=== PATIENT | female | born 1940 | race Caucasian/White ===

== ENCOUNTER 2023-02-08 08:45 | Inpatient (IN) | payer OTHER ==
[~2023-02-08] VITALS: Ht 144.8 cm; Wt 102.5 kg
[2023-02-08 09:03] LABS: Basophils # (auto) 0 10 ^3/uL (0-0.2); Basophils % (auto) 0.4 % (0.0-2.0); Eosinophils # (auto) 0.6 10 ^3/uL (0-0.8); Eosinophils % (auto) 6.6 % (0.0-7.0); Hematocrit 41.8 % (36.0-46.0); Hemoglobin 14.3 g/dL (12.2-16.2); Lymphocytes # (auto) 1.4 10 ^3/uL (0.4-5.4); Lymphocytes % (auto) 15.2 % (10.0-50.0); Mean Corpuscular Hemoglobin 31.4 pg (28.0-32.0); Mean Corpuscular Hgb Conc. 34.1 g/dL (32.0-36.0); Mean Corpuscular Volume 92.2 fL (80.0-100.0); Monocytes # (auto) 0.4 10 ^3/uL (0-1.3); Monocytes % (auto) 3.9 % (0.0-12.0); Neutrophils # (auto) 6.6 10 ^3/uL (1.6-8.6); Neutrophils % (auto) 73.9 % (37.0-80.0); Red Blood Cells 4.53 10^6/uL (4.0-5.20); Red Cell Distribution Width 13.3 % (11.8-14.3); White Blood Cell 8.9 10^3/uL (4.4-10.8)
[2023-02-08 09:20] LABS: Albumin 3.8 g/dL (3.4-5.0); Calcium 9.2 mg/dL (8.5-10.1); Potassium 4.3 mmol/L (3.5-5.1)
[2023-02-08 09:23] LABS: BUN/Creatinine Ratio 27.9 (10.0-20.0); Bilirubin, Total 0.7 mg/dL (0.2-1.0); Total Protein 7.2 g/dL (6.4-8.2)
[2023-02-08] MEDS ORDERED: SODIUM CHLORIDE 0.9% 1,000 ML IV ONE (11:00)
[2023-02-08] MEDS ORDERED: MORPHINE SULFATE INJ 2 MG/ml SYRG IV PRN (11:00)
[2023-02-08] MEDS ORDERED: NITROGLYCERIN 2% OINT 1GM PKG TD ONE (11:00)
[2023-02-08] MEDS ORDERED: NITROGLYCERIN 0.4 MG SL TAB SL PRN (11:00)
[2023-02-08] MEDS ORDERED: ASPirin-EC 325mg tab PO ONE (11:00)
[2023-02-08] MEDS ORDERED: ENOXAPARIN SOD 40 MG/0.4 ML SYRINGE SC ONE (11:00)
[2023-02-08] MEDS ORDERED: ALBUTEROL SULF 2.5 MG/0.5ML(0.5%) NEB SOLN NEB PRN (11:30)
[2023-02-08] MEDS ORDERED: FUROSEMIDE 20 MG/2 ML VIAL IV ONE (11:30)
[2023-02-08] MEDS ORDERED: IPRATROPIUM BROM 0.5 MG/2.5ML INH SOL NEB PRN (11:30)
[2023-02-08] MEDS ORDERED: IOHEXOL 300 MG/ML 100ML BOTTLE IJ ONE ×2 (11:55→16:51)
[2023-02-08 12:06] LABS: INR 1.05 (0.9-1.15); Partial Thromboplastin Time 26.1 sec (24.6-33.4)
[2023-02-08 13:08] VITALS: BP 156/60
[2023-02-08] MEDS ORDERED: hydrALAZINE HCL 20 MG/ML VL IV PRN (15:00)
[2023-02-08 16:41] LABS: Cholesterol 120 mg/dL (< 200); HDL Cholesterol 56 mg/dL (40-59); LDL Cholesterol 62 mg/dL (< 100); Triglycerides 67 mg/dL (< 150)
[2023-02-08 22:00] VITALS: BP_SYST 102; BP_SYST 105; BP_SYST 81; BP_DIAS 53; BP_DIAS 55; BP_DIAS 68
[2023-02-08 22:24] VITALS: BP 102/53
[2023-02-08] MEDS: ATORVASTATIN 20 MG TAB PO SCH (22:25)
[2023-02-08] MEDS: MONTELUKAST SODIUM 10 MG TAB PO SCH (22:25)
[2023-02-08] MEDS: CARVEDILOL 3.125 MG TAB PO SCH (22:26)
[2023-02-08] MEDS ORDERED: LOSA100T58 PO (23:36)
[2023-02-08] MEDS ORDERED: UMEC1AER IN (23:36)
[2023-02-08] MEDS ORDERED: CAR3125T PO (23:36)
[2023-02-08] MEDS ORDERED: MONT-8 PO (23:36)
[2023-02-08] MEDS ORDERED: ATOR20TA PO (23:36)
[2023-02-08] MEDS ORDERED: SPIR25TA8 PO (23:36)
[2023-02-08] MEDS ORDERED: FURO1TAB33 PO (23:36)
[2023-02-09] VITALS (7 sets, daily range): BP systolic 94–140; BP diastolic 32–81
[2023-02-09 05:59] LABS: Basophils # (auto) 0 10 ^3/uL (0-0.2); Basophils % (auto) 0.5 % (0.0-2.0); Eosinophils # (auto) 0.8 10 ^3/uL (0-0.8); Eosinophils % (auto) 9.7 % (0.0-7.0); Hematocrit 40.5 % (36.0-46.0); Lymphocytes # (auto) 2.2 10 ^3/uL (0.4-5.4); Lymphocytes % (auto) 25.3 % (10.0-50.0); Mean Corpuscular Hemoglobin 31.6 pg (28.0-32.0); Mean Corpuscular Hgb Conc. 34.4 g/dL (32.0-36.0); Mean Corpuscular Volume 91.6 fL (80.0-100.0); Monocytes # (auto) 0.8 10 ^3/uL (0-1.3); Monocytes % (auto) 9.5 % (0.0-12.0); Neutrophils # (auto) 4.7 10 ^3/uL (1.6-8.6); Nucleated Red Blood Cells % 0.1 %; Red Blood Cells 4.42 10^6/uL (4.0-5.20); Red Cell Distribution Width 13.4 % (11.8-14.3); White Blood Cell 8.6 10^3/uL (4.4-10.8)
[2023-02-09 06:15] LABS: Albumin 3.5 g/dL (3.4-5.0); Calcium 9.1 mg/dL (8.5-10.1); Potassium 3.8 mmol/L (3.5-5.1)
[2023-02-09 06:21] LABS: BUN/Creatinine Ratio 25.7 (10.0-20.0); Bilirubin, Total 0.6 mg/dL (0.2-1.0); Total Protein 6.9 g/dL (6.4-8.2)
[2023-02-09] MEDS: PANTOPRAZOLE 40 MG/10 ML VIAL INJ IV SCH (09:45)
[2023-02-09] MEDS: ASPirin 81 mg TAB PO SCH (09:46)
[2023-02-09] MEDS: ENOXAPARIN SOD 40 MG/0.4 ML SYRINGE SC SCH (09:46)
[2023-02-09] MEDS: FUROSEMIDE 20 MG/2 ML VIAL IV SCH (09:47)
[2023-02-09] MEDS: CARVEDILOL 3.125 MG TAB PO SCH ×2 (09:47→21:30)
[2023-02-09] MEDS ORDERED: LOSARTAN POTASSIUM 50 MG TAB PO SCH (10:00)
[2023-02-09] MEDS ORDERED: SPIRONOLACTONE 25 MG TAB PO SCH (10:00)
[2023-02-09] MEDS ORDERED: ASPirin-EC 81 mg tab PO SCH (10:00)
[2023-02-09] MEDS: MONTELUKAST SODIUM 10 MG TAB PO SCH (21:29)
[2023-02-09] MEDS: ATORVASTATIN 20 MG TAB PO SCH (21:29)
[2023-02-10 05:00] VITALS: BP_SYST 130; BP_SYST 134; BP_SYST 138; BP_DIAS 62; BP_DIAS 70; BP_DIAS 95
[2023-02-10 09:00] VITALS: BP 126/50
[2023-02-10] MEDS: PANTOPRAZOLE 40 MG/10 ML VIAL INJ IV SCH (11:49)
[2023-02-10] MEDS: ENOXAPARIN SOD 40 MG/0.4 ML SYRINGE SC SCH (11:49)
[2023-02-10] MEDS: CARVEDILOL 3.125 MG TAB PO SCH ×2 (11:50→22:07)
[2023-02-10] MEDS: ASPirin 81 mg TAB PO SCH (11:50)
[2023-02-10] MEDS: FUROSEMIDE 20 MG/2 ML VIAL IV SCH (11:50)
[2023-02-10 13:00] VITALS: BP 98/51
[2023-02-10] MEDS: POTASSIUM CHL 20 Meq TABLET PO SCH (16:26)
[2023-02-10 16:40] VITALS: BP 90/46
[2023-02-10 22:00] VITALS: BP 108/70
[2023-02-10] MEDS: SUCRALFATE 1 GM/10 ML ORAL SUSP PO SCH (22:06)
[2023-02-10] MEDS: MONTELUKAST SODIUM 10 MG TAB PO SCH (22:07)
[2023-02-10] MEDS: ATORVASTATIN 20 MG TAB PO SCH (22:07)
[2023-02-11 02:46] LABS: Urine Bacteria FEW /hpf (None Seen); Urine Blood Negative /uL (Negative); Urine Hyaline Cast FEW /lpf (0 - 2); Urine Specific Gravity 1.014 (1.001-1.035); Urine WBC 9 /hpf (0 - 5)
[2023-02-11 05:00] VITALS: BP_SYST 101; BP_SYST 103; BP_DIAS 54; BP_DIAS 64
[2023-02-11 05:31] LABS: Hematocrit 38.9 % (36.0-46.0); Hemoglobin 13.3 g/dL (12.2-16.2); Mean Corpuscular Hemoglobin 31.6 pg (28.0-32.0); Mean Corpuscular Hgb Conc. 34.3 g/dL (32.0-36.0); Mean Corpuscular Volume 91.9 fL (80.0-100.0); Red Blood Cells 4.23 10^6/uL (4.0-5.20); Red Cell Distribution Width 13.4 % (11.8-14.3); White Blood Cell 7.9 10^3/uL (4.4-10.8)
[2023-02-11 05:40] LABS: Band Neutrophils % (manual) 0; Basophils % (manual) 0 (0.0-2.0); Blast Cells 0; Metamyelocytes % 0; Myelocytes % 0; Promyelocytes % 0
[2023-02-11 05:52] LABS: Albumin 3.3 g/dL (3.4-5.0); Calcium 9.1 mg/dL (8.5-10.1); Potassium 4.2 mmol/L (3.5-5.1)
[2023-02-11 05:55] LABS: BUN/Creatinine Ratio 25.5 (10.0-20.0); Bilirubin, Total 0.6 mg/dL (0.2-1.0)
[2023-02-11] MEDS: SUCRALFATE 1 GM/10 ML ORAL SUSP PO SCH ×4 (06:02→20:58)
[2023-02-11] MEDS ORDERED: IOHEXOL 350 MG/ML 100ML IJ ONE ×2 (07:19→14:37)
[2023-02-11 08:20] VITALS: BP 135/58
[2023-02-11 08:57] VITALS: BP 135/58
[2023-02-11 11:12] LABS: Eosinophils % (manual) 25 (0-7); Lymphocytes % (manual) 28 (10.0-50.0); Monocytes % (manual) 7 (0-12); Reactive Lymphocytes 1
[2023-02-11 13:00] VITALS: BP 111/77
[2023-02-11 14:34] VITALS: BP 133/59
[2023-02-11] MEDS: CARVEDILOL 3.125 MG TAB PO SCH (15:07)
[2023-02-11] MEDS ORDERED: levoFLOXacin 500MG 100 ML IV ONE (15:15)
[2023-02-11] MEDS: PANTOPRAZOLE 40 MG/10 ML VIAL INJ IV SCH (16:06)
[2023-02-11] MEDS: POTASSIUM CHL 20 Meq TABLET PO SCH (16:06)
[2023-02-11] MEDS: CHOLECALCIFEROL (VITD3) 2,000 UNIT CAP/TAB PO SCH (16:06)
[2023-02-11] MEDS: FUROSEMIDE 20 MG/2 ML VIAL IV SCH (16:06)
[2023-02-11] MEDS: ENOXAPARIN SOD 40 MG/0.4 ML SYRINGE SC SCH (16:07)
[2023-02-11 17:00] VITALS: BP_SYST 120; BP_SYST 128; BP_SYST 136; BP_DIAS 62; BP_DIAS 82
[2023-02-11] MEDS ORDERED: LORazepam 2MG/ML-1ML VIAL IV PRN (20:45)
[2023-02-11] MEDS: ATORVASTATIN 20 MG TAB PO SCH (20:58)
[2023-02-11] MEDS: MONTELUKAST SODIUM 10 MG TAB PO SCH (20:58)
[2023-02-12 05:00] VITALS: BP 92/59
[2023-02-12] MEDS: SUCRALFATE 1 GM/10 ML ORAL SUSP PO SCH ×4 (06:03→21:05)
[2023-02-12 09:00] VITALS: BP 122/56
[2023-02-12] MEDS: CHOLECALCIFEROL (VITD3) 2,000 UNIT CAP/TAB PO SCH (09:20)
[2023-02-12] MEDS: POTASSIUM CHL 20 Meq TABLET PO SCH (09:20)
[2023-02-12] MEDS: PANTOPRAZOLE 40 MG/10 ML VIAL INJ IV SCH (09:21)
[2023-02-12] MEDS: FUROSEMIDE 20 MG/2 ML VIAL IV SCH (09:22)
[2023-02-12] MEDS: ENOXAPARIN SOD 40 MG/0.4 ML SYRINGE SC SCH (09:23)
[2023-02-12] MEDS: CARVEDILOL 3.125 MG TAB PO SCH (09:23)
[2023-02-12] MEDS: levoFLOXacin 500MG 100 ML IV SCH (09:24)
[2023-02-12] MEDS ORDERED: ACETAMINOPHEN 325 MG TAB PO PRN (10:15)
[2023-02-12 13:00] VITALS: BP 109/41
[2023-02-12 17:00] VITALS: BP 110/74
[2023-02-12] MEDS: DOCUSATE SOD 100 MG CAP PO SCH ×2 (17:41→21:05)
[2023-02-12] MEDS: ATORVASTATIN 20 MG TAB PO SCH (21:05)
[2023-02-12] MEDS: MONTELUKAST SODIUM 10 MG TAB PO SCH (21:05)
[2023-02-12 22:00] VITALS: BP 131/52
[2023-02-13] VITALS (7 sets, daily range): BP systolic 114–133; BP diastolic 53–68
[2023-02-13] MEDS: SUCRALFATE 1 GM/10 ML ORAL SUSP PO SCH ×4 (06:27→21:09)
[2023-02-13] MEDS: FUROSEMIDE 20 MG/2 ML VIAL IV SCH (09:39)
[2023-02-13] MEDS: levoFLOXacin 500MG 100 ML IV SCH (09:40)
[2023-02-13] MEDS: PANTOPRAZOLE 40 MG/10 ML VIAL INJ IV SCH (09:40)
[2023-02-13] MEDS: DOCUSATE SOD 100 MG CAP PO SCH ×2 (09:40→21:10)
[2023-02-13] MEDS: POTASSIUM CHL 20 Meq TABLET PO SCH (09:41)
[2023-02-13] MEDS: CHOLECALCIFEROL (VITD3) 2,000 UNIT CAP/TAB PO SCH (09:41)
[2023-02-13] MEDS: CARVEDILOL 3.125 MG TAB PO SCH (09:41)
[2023-02-13] MEDS: ENOXAPARIN SOD 40 MG/0.4 ML SYRINGE SC SCH ×2 (09:41→09:48)
[2023-02-13 15:27] LABS: Basophils # (auto) 0 10 ^3/uL (0-0.2); Basophils % (auto) 0.4 % (0.0-2.0); Eosinophils % (auto) 13.2 % (0.0-7.0); Hematocrit 42.2 % (36.0-46.0); Hemoglobin 14.3 g/dL (12.2-16.2); Lymphocytes # (auto) 1.6 10 ^3/uL (0.4-5.4); Lymphocytes % (auto) 21.6 % (10.0-50.0); Mean Corpuscular Hemoglobin 31.2 pg (28.0-32.0); Mean Corpuscular Hgb Conc. 33.9 g/dL (32.0-36.0); Mean Corpuscular Volume 92.3 fL (80.0-100.0); Monocytes # (auto) 0.7 10 ^3/uL (0-1.3); Monocytes % (auto) 9.6 % (0.0-12.0); Neutrophils # (auto) 4.2 10 ^3/uL (1.6-8.6); Neutrophils % (auto) 55.2 % (37.0-80.0); Nucleated Red Blood Cells % 0.1 %; Red Blood Cells 4.58 10^6/uL (4.0-5.20); Red Cell Distribution Width 13.3 % (11.8-14.3); White Blood Cell 7.6 10^3/uL (4.4-10.8)
[2023-02-13 15:43] LABS: BUN/Creatinine Ratio 17.6 (10.0-20.0); Calcium 8.8 mg/dL (8.5-10.1); Potassium 4.1 mmol/L (3.5-5.1)
[2023-02-13] MEDS: ATORVASTATIN 20 MG TAB PO SCH (21:10)
[2023-02-13] MEDS: MONTELUKAST SODIUM 10 MG TAB PO SCH (21:10)
[2023-02-14 05:00] VITALS: BP 104/43
[2023-02-14] MEDS: SUCRALFATE 1 GM/10 ML ORAL SUSP PO SCH ×4 (06:07→21:30)
[2023-02-14 06:32] LABS: Basophils # (auto) 0 10 ^3/uL (0-0.2); Basophils % (auto) 0.5 % (0.0-2.0); Hematocrit 41.2 % (36.0-46.0); Mean Corpuscular Hemoglobin 31.2 pg (28.0-32.0); Mean Corpuscular Hgb Conc. 34.1 g/dL (32.0-36.0); Mean Corpuscular Volume 91.6 fL (80.0-100.0); Monocytes # (auto) 0.7 10 ^3/uL (0-1.3); Monocytes % (auto) 9.7 % (0.0-12.0); Neutrophils # (auto) 3.7 10 ^3/uL (1.6-8.6); Neutrophils % (auto) 49.8 % (37.0-80.0); Nucleated Red Blood Cells % 0.2 %; Red Cell Distribution Width 13.6 % (11.8-14.3); White Blood Cell 7.5 10^3/uL (4.4-10.8)
[2023-02-14 06:57] LABS: BUN/Creatinine Ratio 23.5 (10.0-20.0); Calcium 9.2 mg/dL (8.5-10.1); Magnesium 2.2 mg/dL (1.6-2.6); Potassium 4.3 mmol/L (3.5-5.1)
[2023-02-14 08:00] VITALS: BP 114/53
[2023-02-14 08:30] VITALS: BP 122/81
[2023-02-14] MEDS ORDERED: fentaNYL CITRATE 100 MCG/2 ML VL ONE (08:41)
[2023-02-14] MEDS ORDERED: MIDAZOLAM HCL 2MG/2ML 2ml VIAL (1mg/ml) ONE (08:42)
[2023-02-14] MEDS ORDERED: LIDOCAINE VISCOUS 2% 15ML UD ONE (08:51)
[2023-02-14] MEDS ORDERED: DexAMETHasone SOD PHOS 10MG/1ML VIAL INJ ONE (09:12)
[2023-02-14] MEDS ORDERED: PROPOFOL 10 MG/ML 20 ML IV ONE (09:12)
[2023-02-14] MEDS: DOCUSATE SOD 100 MG CAP PO SCH ×2 (10:00→21:30)
[2023-02-14] MEDS: CARVEDILOL 3.125 MG TAB PO SCH (10:00)
[2023-02-14] MEDS: CHOLECALCIFEROL (VITD3) 2,000 UNIT CAP/TAB PO SCH (10:00)
[2023-02-14] MEDS: POTASSIUM CHL 20 Meq TABLET PO SCH (10:00)
[2023-02-14] MEDS: ENOXAPARIN SOD 40 MG/0.4 ML SYRINGE SC SCH (10:29)
[2023-02-14] MEDS: PANTOPRAZOLE 40 MG/10 ML VIAL INJ IV SCH (10:29)
[2023-02-14] MEDS: levoFLOXacin 500MG 100 ML IV SCH (10:29)
[2023-02-14] MEDS: FUROSEMIDE 20 MG/2 ML VIAL IV SCH (10:30)
[2023-02-14 17:00] VITALS: BP 104/47
[2023-02-14] MEDS: ATORVASTATIN 20 MG TAB PO SCH (21:30)
[2023-02-14] MEDS: MONTELUKAST SODIUM 10 MG TAB PO SCH (21:30)
[2023-02-14 22:00] VITALS: BP 126/64
[2023-02-15 05:00] VITALS: BP 126/51
[2023-02-15] MEDS: SUCRALFATE 1 GM/10 ML ORAL SUSP PO SCH ×2 (06:22→12:11)
[2023-02-15 09:00] VITALS: BP 121/70
[2023-02-15] MEDS ORDERED: LEVO500T91 PO (09:07)
[2023-02-15] MEDS ORDERED: PANT40T PO (09:07)
[2023-02-15] MEDS ORDERED: SUCR1TAB22 OR (09:07)
[2023-02-15] MEDS: levoFLOXacin 500MG 100 ML IV SCH ×2 (10:00→10:17)
[2023-02-15] MEDS: FUROSEMIDE 20 MG/2 ML VIAL IV SCH ×2 (10:00→10:17)
[2023-02-15] MEDS: PANTOPRAZOLE 40 MG/10 ML VIAL INJ IV SCH ×2 (10:00→10:17)
[2023-02-15] MEDS: CHOLECALCIFEROL (VITD3) 2,000 UNIT CAP/TAB PO SCH (10:15)
[2023-02-15] MEDS: POTASSIUM CHL 20 Meq TABLET PO SCH (10:15)
[2023-02-15] MEDS: DOCUSATE SOD 100 MG CAP PO SCH (10:15)
[2023-02-15] MEDS: CARVEDILOL 3.125 MG TAB PO SCH (10:17)
[2023-02-15] MEDS: ENOXAPARIN SOD 40 MG/0.4 ML SYRINGE SC SCH (10:28)
[2023-02-15 13:00] VITALS: BP 121/54
[2023-02-15 14:07] VITALS: BP 121/54
== END 2023-02-15 16:37 | disposition home or self-care (01) | DRG 682 ==
LOC: ER 08:45 → TELE 11:05 → TELE-EAST 21:06
PROVIDERS: ADMIT Nurse Practitioner Family; ATTEND Family Medicine
PROC: 0DB68ZX Excision of Stomach, Via Natural or Artificial Opening Endoscopic, Diagnostic (ICD-10-PCS; 2023-02-14)
PROC: 0DB48ZX Excision of Esophagogastric Junction, Via Natural or Artificial Opening Endoscopic, Diagnostic (ICD-10-PCS; 2023-02-14)
PROC: 0DB98ZX Excision of Duodenum, Via Natural or Artificial Opening Endoscopic, Diagnostic (ICD-10-PCS; principal; 2023-02-14 08:54)
DX: N17.9 Acute kidney failure, unspecified (principal); I50.43 Acute on chronic combined systolic (congestive) and diastolic (congestive) heart failure; K25.3 Acute gastric ulcer without hemorrhage or perforation; Z68.42 Body mass index [BMI] 45.0-49.9, adult; E55.9 Vitamin D deficiency, unspecified; E66.01 Morbid (severe) obesity due to excess calories; E78.5 Hyperlipidemia, unspecified; E86.0 Dehydration; I11.0 Hypertensive heart disease with heart failure; K80.20 Calculus of gallbladder without cholecystitis without obstruction; J44.9 Chronic obstructive pulmonary disease, unspecified; E78.00 Pure hypercholesterolemia, unspecified; H55.00 Unspecified nystagmus; H81.10 Benign paroxysmal vertigo, unspecified ear; K44.9 Diaphragmatic hernia without obstruction or gangrene; Z88.5 Allergy status to narcotic agent; Z88.0 Allergy status to penicillin; Z88.8 Allergy status to other drugs, medicaments and biological substances; Z90.710 Acquired absence of both cervix and uterus; Z82.49 Family history of ischemic heart disease and other diseases of the circulatory system; Z83.3 Family history of diabetes mellitus
CPT/HCPCS: 36415; 70450; 70551; 71045; 71275; 74177; 76705; 78226; 80048; 80053; 80061; 81001; 82306; 83036; 83690; 83735; 83880; 84443; 84484; 85007; 85025; 85027; 85379; 85610; 85730; 93005; 93306; 93886; 93970; 95819; C9113; G0378; J1100; J1956; J2250; J2704